=== PATIENT | female | born 1955 | race Caucasian/White ===

== ENCOUNTER 2016-07-05 12:04 | Inpatient (IN) | payer BC, SELFPAY ==
[2016-06-27 14:24] LABS: HEMATOCRIT 39.7 % (36.0-48.0); HEMOGLOBIN 13.4 g/dL (12.0-16.0)
[2016-06-27 14:32] LABS: BUN (BLOOD UREA NITROGEN) 15 MG/DL (6-23); CHLORIDE, SERUM 104 MMOL/L (96-112); CREATININE 0.55 MG/DL (0.55-1.02); GFR AFRICAN AMERICAN 118 ML/MIN (>=60); GFR NON AFRICAN AMERICAN 102 ML/MIN (>=60); GLUCOSE, SERUM 97 MG/DL (60-99); POTASSIUM, SERUM 4.7 MMOL/L (3.5-5.3); SODIUM, SERUM 143 MMOL/L (135-148)
[2016-06-27 14:33] LABS: CALCIUM, SERUM 9.6 MG/DL (8.5-10.4); CO2 (CARBON DIOXIDE) 31 MMOL/L (24-34)
--- NOTE | ~2016-07-05 | PREOPHP ---
PreOp History and Physical [facility] [address] [place]. [address] NAME: LUIS DIAZ : 57 STATUS : ADM IN PAT#: [id number] AGE: 61 ADM/REG DATE : 07/05/16 MR#: [id number] REPORT SERV DATE: 07/05/16 DICTATED BY: FACUNDO LILLY DATE: 07/05/16 REPORT STATUS : Draft TRANSCRIBED BY: MODJami DATE: 07/05/16 CHIEF COMPLAINT: Back pain, leg pain. HISTORY OF PRESENT ILLNESS: A 61-year-old female, who has had prolonged back and leg pain that has finally failed all forms of conservative care with the diagnosis proven by x-ray and MRI, grade 1 spondylolisthesis and severe spinal stenosis at L4-L5. She tried time, medication therapy, etc. She had cognitive behavior therapy, and nothing helped. She also is a nonsmoker, has no psychological issues, and thus is brought to surgery for a left-sided oblique approach through the retroperitoneal space for a lateral diskectomy, lateral interbody Clydesdale cage insertion, lateral interbody fusion with posterior percutaneous instrumentation at L4-L5 prior to surgery. Risks, benefits, alternatives, and expectations have been explained in great detail. Consent form A2 has been signed. Also please note, because of the complexity of surgery, the need to identify correct level of surgery intraoperatively as well as desire to carry out the safest most precise dissection, we feel intraoperative navigation is mandatory. PAST MEDICAL HISTORY: Includes asthma, osteoarthritis. PAST SURGICAL HISTORY: Three reconstructive hand surgery, colonoscopy, abdominal hysterectomy, x2, wisdom tooth extraction, and appendectomy. CURRENT MEDICATIONS: Include Ultram, Robaxin. ALLERGIES: MORPHINE, MARCAINE, DEMEROL, AND CODEINE. 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 She is a nonsmoker, and does not use any alcohol. FAMILY HISTORY: Noncontributory. REVIEW OF SYSTEMS: Otherwise negative. PHYSICAL EXAMINATION: VITAL SIGNS: She is 5 feet, 148 pounds. BMI is 28.9. GENERAL: She is alert, cooperative, well oriented. Ambulates independently. HEENT: Exam is grossly normal. LUNGS: Clear to auscultation. HEART: Rate is regular rhythm. ABDOMEN: Soft with good bowel sounds. No peritoneal signs are noted. MUSCULOSKELETAL: The spine itself has no gross deformities. She has negative Ryan signs, negative ELANA sign, negative straight leg raising signs. Femoral nerve stretch tests are negative. She has some weakness of tibialis, anterior, and, EHL graded 4/5 bilateral. There is no dermatomal sensory deficit. Patellar reflex is 2/4. Achilles reflex is 1/4. No myelopathy is found. PreOp History and Physical [address] [address] NAME: LUIS DIAZ : 57 STATUS : ADM IN PAT#: [id number] AGE: 61 ADM/REG DATE : 07/05/16 MR#: [id number] REPORT SERV DATE: 07/05/16 DICTATED BY: FACUNDO LILLY DATE: 07/05/16 REPORT STATUS : Draft TRANSCRIBED BY: GUNNAR DATE: 07/05/16 Orthopedically, she has no pain with moving hips, knees, or ankles. She has good pulse in all four extremities. No abnormal skin lesions found. ASSESSMENT: Grade 1 spondylolisthesis, spinal stenosis, L4-L5. RECOMMENDATION: As listed above. /GUNNAR Facundo Lilly D.O. / [id number] CC: Abhijeet Pisano CRNA
--- NOTE | ~2016-07-05 | OP ---
Record Of Operation [facility] [address] [place]. [address] NAME: ULIS DIAZ : 57 STATUS : ADM IN PAT#: [id number] AGE: 61 ADM/REG DATE : 07/05/16 MR#: [id number] REPORT SERV DATE: 07/06/16 DICTATED BY: FACUNDO LILLY DATE: 07/06/16 REPORT STATUS : Draft TRANSCRIBED BY: MODL DATE: 07/06/16 DATE OF PROCEDURE: PREOPERATIVE DIAGNOSIS: Grade 1 spondylolisthesis, severe spinal stenosis, L4-5. POSTOPERATIVE DIAGNOSIS: Grade 1 spondylolisthesis, severe spinal stenosis, L4-5. PROCEDURES: 1. Microscopic and navigation-assisted surgery. 2. Left-sided anterolateral retroperitoneal approach for an oblique lateral diskectomy, interbody Clydesdale cage insertion, and lateral interbody fusion, L4-5. 3. Posterior percutaneous Voyager instrumentation L4-5. SURGEON: Facundo Lilly D.O. DOVETAIL MACHINE OPERATOR: Kvng Giron. ANESTHESIA: General. ESTIMATED BLOOD LOSS: 50 mL. INDICATIONS FOR SURGERY: Indications for surgery and risks were explained. They are listed in the last office note as well as history and physical. See that for detail. DESCRIPTION OF PROCEDURE: Antibiotic prophylaxis was given. Neurophysiology monitoring leads were inserted. The patient was brought to the operative suite, general anesthetic including endotracheal intubation was administered. Cervantes catheter was placed with sterile technique. The patient was placed in lateral decubitus position, the left side was up. A small bolster was placed at the iliac crest and axillary roll was placed. The hips were placed in a neutral alignment. The patient was carefully secured and taped to the table across the chest, the hips, and the knees. Isolation drapes were placed. The left side of the abdomen, the left flank, and the left thoracolumbar spine were scrubbed with Hibiclens solution. DuraPrep was painted. Sterile drapes applied. Because of the complexity of surgery and the need to identify correct level of surgery intraoperatively as well as desire to carry out the safest and most precise dissection with least amount of radiation exposure, we feel that intraoperative navigation was mandatory. A small stab wound was carried out at the left posterior superior iliac spine. A percutaneous pin with navigational frame attached was inserted in PSIS. Intraoperative CT scan with the O-arm was obtained. CT information used to register the navigational system. With navigational assistance, I identified the L4-5 level. This was anterior to and parallel with the disk space of L4-5 and we were approximately 6 cm anterior to the disk space itself. A slightly oblique 3 cm skin incision was carried out. The subcutaneous tissue was sharply divided. The external oblique muscle was bluntly divided and the Record Of Operation [facility] [address] [place]. [address] NAME: LUIS DIAZ : 57 STATUS : ADM IN PAT#: [id number] AGE: 61 ADM/REG DATE : 07/05/16 MR#: [id number] REPORT SERV DATE: 07/06/16 DICTATED BY: FACUNDO LILLY DATE: 07/06/16 REPORT STATUS : Draft TRANSCRIBED BY: GUNNAR DATE: 07/06/16 internal oblique was bluntly divided and then I bluntly palpated through the retroperitoneum and palpated the quadratus lumborum, the transverse process of L5, the psoas muscle and the anterior edge of the psoas. I then carefully used a blunt retractor carefully protect the psoas and retracted slightly posterior while my index finger was protecting the vessels medial and anterior. An initial dilator was inserted between my index finger protecting the vessels and the blunt retractor retracting the psoas. The anterolateral docking site for the initial dilator was then followed by muscle dilators. The tubular retractor was placed. The tubular retractor was attached to an arm mount table. The microscope was sterilely draped and used throughout the remainder of the procedure. With Neurophysiology monitoring we tested inside the circumference of the retractor. We did find that posteriorly there was some abnormal stimulation at higher levels of stimulation of 12 milliamps, we have reduced it to 8 milliamps, the stimulation would go away, so we knew the nerve was in the neighborhood, but we were not right on the nerve and we avoided the posterior aspect of the retractor throughout the entire procedure. We then carried out a rectangular annulotomy anterior, we ran Bailee zone 1 and 2 throughout the procedure. After the rectangular annulotomy a diskectomy was carried out with curettes, rongeurs, and disk santo. We did use the orthogonal maneuver starting anterolateral and then moving into a direct lateral position as we crossed the interbody space to the contralateral side. The contralateral annulus was released. All the endplate cartilage was removed. Interbody trial was carried out. We determined the appropriate size cage was 14 x 45. The wound was irrigated. The cage was filled with a fibrous form of allograft and an extra-small dosage of bone protein. The cage was inserted after being properly seated. The craps manager was removed. The retractor was closed. There was no bleeding. We gently withdrew the retractor under direct vision. No abnormal findings. The internal oblique and external oblique were closed in separate layers of 0 PDS suture, subcutaneous tissue closed with 2-0 Vicryl, 2-0 vertical mattress nylon suture was used for skin closure. Sterile dressings were applied. The patient was then repositioned into a prone position. After being properly repositioned, then bony prominences were carefully padded. Thoracolumbar spine was once again scrubbed with Hibiclens solution. DuraPrep was painted. Sterile drapes applied. Once again, the navigational system was re-registered. With navigational assistance, I determined the entry into the posterior aspect of the pedicle of L4 and 5. A 3 cm skin incision was carried out left and right side. A percutaneous navigated pedicle tap and screw craps manager were used to tap the pedicles of L4 and 5 bilaterally. Polyaxial Voyager screws 45 mm in length and 6.5 mm in diameter were inserted at L4-5 bilateral. The contoured 35 mm dumbbell lordotic jamel was placed through the top portion. The screw extenders reduced into the tulip of the pedicle screw. The set screws inserted and tightened with a torque wrench providing rigid stability. Intraoperative CT scan with O-arm repeated showing excellent position of all implants. The wounds were irrigated. The screw extenders were removed. The fascial openings were allowed to reapproximate itself. The subcutaneous tissue closed with 2-0 Vicryl sutures, 2-0 vertical mattress nylon suture used for skin closure. Sterile dressings applied. The patient returned to the supine position, awakened, extubated, taken to recovery room in Record Of Operation [address] [place]. [address] NAME: LUIS DIAZ : 57 STATUS : ADM IN [facility]#: [id number] AGE: 61 ADM/REG DATE : 07/05/16 MR#: [id number] REPORT SERV DATE: 07/06/16 DICTATED BY: FACUNDO LILLY DATE: 07/06/16 REPORT STATUS : Draft TRANSCRIBED BY: GUNNAR DATE: 07/06/16 satisfactory condition having tolerated the procedure well. PABLITO/GUNNAR Facundo Lilly D.O. / [id number] CC: Facundo Lilly D.O.
[~2016-07-05 12:04] MED LIST: METHOC500B PO; NORCO1 TA1 PO; ULTRAM50 PO
[2016-07-06 04:59] LABS: BASOPHILS 0.1 %; BASOPHILS ABSOLUTE 0.01 10/3/uL (0.0-0.16); EOSINOPHILS 0 %; HEMATOCRIT 38.7 % (36.0-48.0); HEMOGLOBIN 13.2 g/dL (12.0-16.0); IMMATURE GRANULOCYTES 0.2 %; IMMATURE GRANULOCYTES ABSOLUTE 0.02 10/3/uL (0.0-0.11); LYMPHOCYTES 5.7 %; MEAN CORPUS HGB CONC 34.1 g/dL (32.0-36.0); MEAN CORPUSCULAR HEMOGLOB 28.8 pg (26.0-34.0); MEAN CORPUSCULAR VOLUME 84.3 fL (80-100); MEAN PLATELET VOLUME 11.6 fL (9.2-13.0); MONOCYTES 4.7 %; MONOCYTES ABSOLUTE 0.58 10/3/uL (0.21-1.20); NEUTROPHILS 89.3 %; NEUTROPHILS ABSOLUTE 10.93 10/3/uL (2.02-8.40); PLATELET COUNT 248 10/3/uL (150-400); RBC DISTRIBUTION WIDTH 12.1 % (12.0-16.0); RED CELL COUNT 4.59 10/6/uL (4.0-5.6)
[2016-07-06 05:01] LABS: MANUAL DIFF NO %; WHITE BLOOD CELLS 12.2 10/3/uL (4.5-10.5)
[2016-07-06 05:10] LABS: CALCIUM, SERUM 8.8 MG/DL (8.5-10.4); CHLORIDE, SERUM 110 MMOL/L (96-112); CREATININE 0.75 MG/DL (0.55-1.02); GFR AFRICAN AMERICAN 100 ML/MIN (>=60); GFR NON AFRICAN AMERICAN 87 ML/MIN (>=60); POTASSIUM, SERUM 4.5 MMOL/L (3.5-5.3); SODIUM, SERUM 144 MMOL/L (135-148)
[2016-07-06 05:13] LABS: BUN (BLOOD UREA NITROGEN) 10 MG/DL (6-23); CO2 (CARBON DIOXIDE) 25 MMOL/L (24-34); GLUCOSE, SERUM 178 MG/DL (60-99)
[2016-07-08] MEDS ORDERED: NORCO1 TA2 PO (10:27)
== END 2016-07-08 14:25 | disposition home or self-care (01) | DRG 455 ==
LOC: SDC/OF 12:04 → 3SO 22:21
PROVIDERS: Orthopaedic Surgery Orthopaedic Surgery of the Spine
PROC: 4A11X4G Monitoring of Peripheral Nervous Electrical Activity, Intraoperative, External Approach (ICD-10-PCS; 2016-07-05)
PROC: 0SG00A0 Fusion of Lumbar Vertebral Joint with Interbody Fusion Device, Anterior Approach, Anterior Column, Open Approach (ICD-10-PCS; principal; 2016-07-05 16:30)
PROC: 0SG0071 Fusion of Lumbar Vertebral Joint with Autologous Tissue Substitute, Posterior Approach, Posterior Column, Open Approach (ICD-10-PCS; 2016-07-05 16:30)
PROC: 0ST20ZZ Resection of Lumbar Vertebral Disc, Open Approach (ICD-10-PCS; 2016-07-05 16:30)
DX: M51.36 Other intervertebral disc degeneration, lumbar region (principal)
CPT/HCPCS: 36415; 80048; 82962; 85014; 85018; 85025; 86850; 86900; 86901; 87641; 88304; 88311; 93005; 97116-GP; 97161-GP; A9270-GY; C1713; J0461; J0690; J1644; J2250; J2370; J2405; J2710; J3010